=== PATIENT | male | born 2000 | race Caucasian/White ===

== ENCOUNTER 2024-04-23 13:46 | Emergency (ER) | payer SELFPAY ==
[~2024-04-23] VITALS: Ht 177.8 cm; Wt 80.0 kg
[2024-04-23 13:48] VITALS: O2SAT 98
[2024-04-23 15:00] LABS: BASOPHILS % 0.9 % (0.0-2.0); EOSINOPHILS % 1.3 % (0.0-5.0); HEMATOCRIT. 42.3 % (42.0-52.0); HEMOGLOBIN. 13.7 g/dL (14.0-18.0); LYMPHOCYTES % 17.6 % (20.0-50.0); MEAN CORPUSCULAR HEMOGLOBIN 27.6 pg (28.0-32.0); MEAN CORPUSCULAR HGB CONC 32.3 g/dL (31.0-37.0); MEAN CORPUSCULAR VOLUME 85.4 fL (80.0-94.0); MEAN PLATELET VOLUME 7.1 fl (7.4-10.4); MONOCYTES % 10.5 % (2.0-8.0); NEUTROPHILS % 69.7 % (40.0-76.0); PLATELET 371 x1000/uL (130-400); RED BLOOD CELL COUNT 4.95 mill/uL (4.7-6.1); RED CELL DISTRIBUTION WIDTH 14.9 % (11.6-14.6); WHITE BLOOD COUNT 7.7 x1000/uL (4.5-11.0)
[2024-04-23 15:03] LABS: CHLORIDE 107 mEq/L (98-107); POTASSIUM 3.2 mEq/L (3.5-5.1); SODIUM 140 mEq/L (136-145)
[2024-04-23 15:04] LABS: CALCIUM 9.6 mg/dL (8.7-10.4); CARBON DIOXIDE 27 mEq/L (21-32)
[2024-04-23 15:09] LABS: CREATININE 0.8 mg/dL (0.6-1.3); GLUCOSE 95 mg/dL (70-105); UREA NITROGEN BLOOD 10 mg/dL (9-23)
[2024-04-23 15:11] LABS: ACETAMINOPHEN < 2 ug/mL (10-30); ETHANOL BLOOD < 10 mg/dL (<10)
[2024-04-23] MEDS ORDERED: POTASSIUM CHLORIDE 20MEQ/PACKET PO ONE (18:00)
[2024-04-23] MEDS ORDERED: POTASSIUM CHLORIDE 20MEQ/PACKET PO NR (21:30)
[2024-04-23 21:33] LABS: CLARITY URINE CLOUDY (CLEAR); COLOR URINE YELLOW (YELLOW); GLUCOSE URINE NEGATIVE (NEGATIVE); KETONES URINE TRACE (NEGATIVE); LEUKOCYTE ESTERASE URINE NEGATIVE (NEGATIVE); NITRITE URINE NEGATIVE (NEGATIVE); OCCULT BLOOD URINE NEGATIVE (NEGATIVE); PROTEIN URINE NEGATIVE (NEGATIVE); SPECIFIC GRAVITY URINE 1.021 (1.005-1.030)
[2024-04-23] MEDS: POTASSIUM CHLORIDE 20MEQ/PACKET PO NR (21:38)
[2024-04-23] MEDS: HALOPERIDOL LACTATE 5MG/ML VIAL IM ONE (21:38)
[2024-04-23 21:45] LABS: BACTERIA URINE 3+; RBC URINE NONE SEEN /hpf (0-2); SQUAMOUS EPITHELIAL CELL URINE FEW /lpf (RARE/1+); WBC URINE 0-2 /hpf (0-2)
[2024-04-23 21:46] LABS: *AMPHETAMINES SCREEN URINE PRESUMPTIVE POSITIVE (NEGATIVE); *BENZODIAZEPINES SCREEN URINE NEGATIVE (NEGATIVE); AMORPHOUS SEDIMENT URINE 1+ /lpf
[2024-04-23 21:47] LABS: *BARBITURATES SCREEN URINE NEGATIVE (NEGATIVE); *COCAINE SCREEN URINE NEGATIVE (NEGATIVE); CANNABINOID URINE SCREEN PRESUMPTIVE POSITIVE (NEGATIVE); ECSTASY MDMA SCREEN URINE CONF.TEST INDICATED (NEGATIVE); METHADONE URINE SCREEN NEGATIVE (NEGATIVE); OPIATES URINE SCREEN NEGATIVE (NEGATIVE); PHENCYCLIDINE URINE SCREEN NEGATIVE (NEGATIVE)
[2024-04-24 09:06] LABS: CHLORIDE 109 mEq/L (98-107); POTASSIUM 4.1 mEq/L (3.5-5.1); SODIUM 137 mEq/L (136-145)
[2024-04-24 09:07] LABS: CALCIUM 9.2 mg/dL (8.7-10.4); CARBON DIOXIDE 24 mEq/L (21-32)
[2024-04-24 09:12] LABS: CREATININE 0.7 mg/dL (0.6-1.3); GLUCOSE 87 mg/dL (70-105); UREA NITROGEN BLOOD 5 mg/dL (9-23)
[2024-04-24 09:14] LABS: ALANINE AMINOTRANSFERASE 37 IU/L (10-49); ALBUMIN 4.6 g/dL (3.2-4.8); ASPARTATE AMINOTRANSFERASE 32 IU/L (<34); BILIRUBIN TOTAL 1.3 mg/dL (0.1-1.0); PROTEIN TOTAL 7.1 g/dL (6.0-8.3)
[2024-04-24 10:12] VITALS: BP 129/73; PULSE 95; RESP 18; TEMP 98.6
== END 2024-04-24 10:15 | disposition home or self-care (01) ==
LOC: ER 13:51
DX: R45.851 Suicidal ideations (principal); F15.90 Other stimulant use, unspecified, uncomplicated; F14.90 Cocaine use, unspecified, uncomplicated; E87.6 Hypokalemia; Z20.822 Contact with and (suspected) exposure to COVID-19
CPT/HCPCS: 80053; 80305; 80048; 81003; 80307; 80329; 80320; 85025; 36415; 93005; 96372; 99291; 87426; J1630; G0480